=== PATIENT | female | born 1995 | race Caucasian/White ===

== ENCOUNTER 2017-11-30 17:28 | Emergency (ER) | payer OTHER ==
--- NOTE | 2017-11-30 17:44 | EDPHY ---
H & P Stated Complaint: chest pressure Time Seen by Provider: 11/30/17 17:44 - Personal History LMP (Females 10-55): Over 28 Days Ago Current Tetanus Diphtheria and Acellular Pertussis (TDAP): Yes - Medical/Surgical History Hx Asthma: No Hx Chronic Respiratory Disease: No Hx Diabetes: No Hx Cardiac Disease: No Hx Renal Disease: No Hx Cirrhosis: No Hx Alcoholism: No Hx HIV/AIDS: No Hx Splenectomy or Spleen Trauma: No - Social History Smoking Status: Never smoked Constitutional: Initial Vital Signs Temperature (C) 36.7 C 11/30/17 17:34 Heart Rate 124 H 11/30/17 17:34 Respiratory Rate 18 11/30/17 17:34 Blood Pressure 133/88 H 11/30/17 17:34 O2 Sat (%) 99 11/30/17 17:34 O2 Delivery Mode Room Air Allergies/Adverse Reactions: No Known Drug Intolerances Allergy (Verified 11/30/17 17:39) Medical Decision Making ED Course/Re-evaluation: CHIEF COMPLAINT: Possible abnormal EKG HISTORY OF PRESENT ILLNESS: The patient is a 22 y/o female arriving from [facility] due to concern for an abnormal EKG there. She was evaluated at [facility] due to the sensation of a "weird feeling right in my chest" that feels like a vague pressure for a few days. She has some difficulty describing the sensation. It is not sharp in quality, but is slightly better when leaning forward. She has some mild epigastric pain to palpation as well. She denies associated reflux, nausea, vomiting, spicy or abnormal food. No fever, chills, dyspnea, recent illness, or recent trauma. REVIEW OF SYSTEMS: A comprehensive 10 system review of systems is otherwise negative aside from elements mentioned in the history of present illness and medical decision making. PHYSICAL EXAM: HR, BP, O2 Sat, RR. Temp noted General Appearance: Alert, well hydrated, appropriate, and non-toxic appearing. Head: Atraumatic without scalp tenderness or obvious injury Eyes: Pupils equal, round, reactive to light and accommodation, EOMI, no trauma , no injection. Nose: Atraumatic, no rhinorrhea, clear. Throat: Mucus membranes moist. Neck: Supple, nontender, no lymphadenopathy. Respiratory: No retractions, no distress, no wheezes, and no accessory muscle use. Lungs are clear to auscultation bilaterally. Cardiovascular: Regular rate and rhythm, no murmurs, rubs, or gallops. Good capillary refill all extremities. Gastrointestinal: Abdomen is soft, mild epigastric pain, non-distended, no masses, no rebound, no guarding, no peritoneal signs. Musculoskeletal: Normal active ROM of all extremities, atraumatic. Neurological: Alert, appropriate, and interactive. The patient has non-focal cranial nerves, motor, sensory, and cerebellar exam. Skin: No rashes, good turgor, no nodules on palpation. Past medical history: Denies Past surgical history: Denies Family history: Noncontributory Social history: Friend at bedside. [employer] student. DIAGNOSTICS/PROCEDURES/CRITICAL CARE TIME: The 12 lead EKG was interpreted by myself. Sinus mechanism with RBBB. See hard copy and/or "tracemaster" electronic copy for interpretation. DIFFERENTIAL DIAGNOSIS: The differential diagnosis for the patient's chest pain included but was not limited to myocardial ischemia, pulmonary embolus, chest wall pain, pleural inflammation, and pulmonary infectious causes. MEDICAL DECISION MAKING: This is a 22 y/o female who presents with a few day history of vague chest pressure and report of an abnormal EKG at [facility]. She has mild epigastric tenderness on exam. This EKG shows a RBBB with a normal T wave pattern. Doubt cardiac etiology. Plan for IV, labs, EKG. EKG shows RBBB. Troponin is negative. Reassessed patient and discussed findings. Suspect musculoskeletal pain and possibly some reflux. Dose of 40mg PO Pepcid ordered. She will be discharged with standard care and follow up instructions. Return precautions discussed. - Data Points Laboratory Results: 11/30/17 18:14 POC Troponin I 0.00 ng/mL ng/mL (0.00-0.08) Point of Care Test Results: Chemistry 11/30/17 18:14 POC Troponin I 0.00 ng/mL ng/mL (0.00-0.08) Departure - Departure Disposition: Home, Routine, Self-Care Clinical Impression: Musculoskeletal pain Condition: Good Instructions: Chest Wall Pain (ED) Additional Instructions: 1. Take Xantac as directed on the bottle for symptoms. 2. Follow up with your primary care provider as needed for unimproved symptoms over the weekend. 3. Return to the ED for worsening of condition. Referrals: NONE *PRIMARY CARE P,. [Primary Care Provider] - As per Instructions Jane Segura, [Doctor of Osteopathy] - As per Instructions Report Scribed for: Jose A Juárez Report Scribed by: Kim Mitchell Date of Report: 11/30/17 Time of Report: 17:49
[2017-11-30] MEDS: FAMOTIDINE 20 MG TAB PO ONE (18:34)
[2017-11-30 18:41] VITALS: BP 115/70
--- NOTE | 2017-11-30 18:56 | CPEKG ---
Test Reason : OPEN Blood Pressure : / mmHG Vent. Rate : 090 BPM Atrial Rate : 087 BPM P-R Int : 117 ms QRS Dur : 122 ms QT Int : 387 ms P-R-T Axes : 082 035 009 degrees QTc Int : 474 ms Sinus rhythm Right bundle branch block Confirmed by Jose A Juárez ([id number]) on 11/30/2017 6:55:39 PM Referred By: Confirmed By:Jose A Juárez
== END 2017-11-30 18:41 | disposition home or self-care (01) ==
DX: R07.9 Chest pain, unspecified (principal)
CPT/HCPCS: 82435-PO; 82565-PO; 82947-PO; 84132-PO; 84295-PO; 84484-PO; 84520-PO; 85014-PO